=== PATIENT | female | born 2000 | race Caucasian/White ===

== ENCOUNTER 2020-06-24 19:29 | Emergency (ER) | payer OTHER ==
[~2020-06-24 19:29] MED LIST: AMOXICILLIN500 MG PO; BACTROBAN NASAL1 GM; CHILDREN'S ALAWA5 ML EYEBOTH; CYMBALTA 30MG C30 MG PO; FLONASE ALLER15.8 ML; HAILEY 24 FE 11 EACH PO; HYDROXYZINE HCL10 MG PO; INDERAL20 MG PO; IRON160 MG PO; LYSTEDA650 MG PO; MEDROL 4MG DOSEP4 MG PO; NORCO 5-325 TA1 EACH PO; NYSTATIN SUSP1 ML/ML SSW; TESSALON PERLE100 MG PO; TOPAMAX25 MG PO; VENTOLIN HFA IN18 GM INH; XYZAL5 MG PO
== END 2020-06-24 23:00 | disposition home or self-care (01) ==
LOC: FER 19:29
DX: S01.511A Laceration without foreign body of lip, initial encounter (principal); R68.84 Jaw pain; I10 Essential (primary) hypertension; Y92.009 Unspecified place in unspecified non-institutional (private) residence as the place of occurrence of the external cause; Z88.6 Allergy status to analgesic agent; W22.09XA Striking against other stationary object, initial encounter; Y93.23 Activity, snow (alpine) (downhill) skiing, snowboarding, sledding, tobogganing and snow tubing
CPT/HCPCS: 99283

== ENCOUNTER 2020-11-29 16:25 | Emergency (ER) | payer OTHER ==
[2020-11-29 18:23] LABS: BASOPHIL 0.4 % (0-2); BILIRUBIN NEGATIVE (NEGATIVE); BLOOD NEGATIVE Ery/uL (NEGATIVE); CLARITY CLEAR (CLEAR); COLOR YELLOW (YELLOW); GLUCOSE (U) NORMAL (NORMAL); HCT 43.8 % (37.0-47.0); HGB 14.1 g/dl (12.5-16.0); LEUKOCYTES NEGATIVE Leu/uL (NEGATIVE); LYMPHOCYTE 20.5 % (15-48); MCH 27.6 pg (25.0-31.0); MCHC 32.2 g/dL (32.0-36.0); MCV 85.7 fL (78.0-100.0); MPV 9.1 fL (6.0-9.5); NEUTROPHIL 69.9 % (41-80); NITRITE NEGATIVE (NEGATIVE); NRBC 0; PLT 410 K/uL (150-400); PROTEIN NEGATIVE (NEGATIVE); RBC 5.11 M/uL (4.20-5.40); UROBILINOGEN 0.2 mg/dL (0.2-1.0); WBC 9.5 K/uL (4.0-10.5)
[2020-11-29 18:41] LABS: ALBUMIN 4.4 g/dL (3.4-5.0); BILIRUBIN - TOTAL 0.3 mg/dL (0.2-1.0); BUN/CREAT RATIO (CALC) 11.6 RATIO; CREATININE 0.69 mg/dL (0.51-0.95); GLOBULIN (CALCULATION) 4.1 g/dL; POTASSIUM 3.8 mmol/L (3.5-5.1); TOTAL PROTEIN 8.5 g/dL (6.4-8.2)
[2020-11-29] MEDS ORDERED: MEDROL 4MG DOSEP4 MG PO (19:06)
[2020-11-29] MEDS ORDERED: CYCLOBENZAPRINE10 MG PO (19:06)
== END 2020-11-29 19:15 | disposition home or self-care (01) ==
LOC: FER 16:25
PROVIDERS: Nurse Practitioner Family
DX: R10.9 Unspecified abdominal pain (principal)
CPT/HCPCS: 36415; 80053; 81003; 85025; J2270; J2405; J7030

== ENCOUNTER 2020-12-03 19:08 | Emergency (ER) | payer OTHER ==
[~2020-12-03 19:08] MED LIST changes: +CYCLOBENZAPRINE10 MG PO
[2020-12-03 21:32] LABS: BASOPHIL 0.5 % (0-2); EOSINOPHIL 4.2 % (0-5); HCT 45.2 % (37.0-47.0); HGB 14.5 g/dl (12.5-16.0); LYMPHOCYTE 23.1 % (15-48); MCH 27.7 pg (25.0-31.0); MCHC 32.1 g/dL (32.0-36.0); MCV 86.4 fL (78.0-100.0); MONOCYTE 5.1 % (0-12); MPV 9.5 fL (6.0-9.5); NEUTROPHIL 66.8 % (41-80); NRBC 0; PLT 451 K/uL (150-400); RBC 5.23 M/uL (4.20-5.40); RDW 12.9 % (11.5-14.0); WBC 11.9 K/uL (4.0-10.5)
[2020-12-03 21:39] LABS: AMPHETAMINES NEGATIVE (NEGATIVE); BARBITURATES NEGATIVE (NEGATIVE); ECSTASY (MDMA) NEGATIVE (NEGATIVE); MARIJUANA (THC) NEGATIVE (NEGATIVE); METHADONE NEGATIVE (NEGATIVE); OPIATES NEGATIVE (NEGATIVE); OXYCODONE NEGATIVE (NEGATIVE)
[2020-12-03] MEDS ORDERED: BENTYL10 MG PO (21:58)
[2020-12-03 22:10] LABS: BILIRUBIN NEGATIVE (NEGATIVE); BLOOD NEGATIVE Ery/uL (NEGATIVE); CLARITY CLEAR (CLEAR); COLOR YELLOW (YELLOW); GLUCOSE (U) NORMAL (NORMAL); LEUKOCYTES NEGATIVE Leu/uL (NEGATIVE); NITRITE NEGATIVE (NEGATIVE); PROTEIN NEGATIVE (NEGATIVE); SPECIFIC GRAVITY 1.015 (1.001-1.030); UROBILINOGEN 0.2 mg/dL (0.2-1.0)
[2020-12-03 22:18] LABS: ALBUMIN 4.2 g/dL (3.4-5.0); BILIRUBIN - TOTAL 0.3 mg/dL (0.2-1.0); BUN/CREAT RATIO (CALC) 11.8 RATIO; CREATININE 0.68 mg/dL (0.51-0.95); GLOBULIN (CALCULATION) 4.1 g/dL; POTASSIUM 3.9 mmol/L (3.5-5.1); TOTAL PROTEIN 8.3 g/dL (6.4-8.2)
== END 2020-12-03 22:45 | disposition home or self-care (01) ==
LOC: FER 19:08
PROVIDERS: Nurse Practitioner Family
DX: R10.11 Right upper quadrant pain (principal); R11.2 Nausea with vomiting, unspecified; Z88.6 Allergy status to analgesic agent; Z91.041 Radiographic dye allergy status; Z91.013 Allergy to seafood; Z87.42 Personal history of other diseases of the female genital tract; Z79.899 Other long term (current) drug therapy
CPT/HCPCS: 36415; 80053; 80305; 81003; 85025; J2405; J7030